=== PATIENT | female | born 1980 | race Caucasian/White ===

== ENCOUNTER 2022-04-27 13:06 | Outpatient (REF) | payer OTHER, SELFPAY | END 2022-04-27 13:07 | disposition home or self-care (01) | LOC: HO.HOSX 13:06 | PROVIDERS: Visit Provider Physician Assistant | DX: Z13.89 Encounter for screening for other disorder (principal) ==

== ENCOUNTER 2022-04-28 14:11 | Outpatient (REF) | payer OTHER, SELFPAY ==
--- NOTE | ~2022-04-28 | XR_ITS ---
EXAMINATION: XR AP STANDING VIEW BOTH KNEES. XR KNEE, BILATERAL. CLINICAL INFORMATION: Bilateral knee pain COMPARISON: Left knee radiographs 03/20/2010 TECHNIQUE: AP standing view both knees. Lateral and sunrise views of each knee. FINDINGS: There is severe patellofemoral compartment osteoarthritis of both knees with lateral subluxation of the patella and large marginal osteophytes. Large marginal osteophytes are also present in the medial and lateral compartments without significant joint space narrowing. No acute osseous abnormality. No definite joint effusion. XR/XR knee standing BI IMPRESSION: Severe patellofemoral compartment osteoarthritis of both knees with lateral subluxation of the patella suggesting chronic patellofemoral malalignment. Moderate medial/lateral compartment osteoarthritis. Degenerative changes are symmetric. No acute abnormality.
--- NOTE | ~2022-04-28 | XR_ITS ---
EXAMINATION: XR AP STANDING VIEW BOTH KNEES. XR KNEE, BILATERAL. CLINICAL INFORMATION: Bilateral knee pain COMPARISON: Left knee radiographs 03/20/2010 TECHNIQUE: AP standing view both knees. Lateral and sunrise views of each knee. FINDINGS: There is severe patellofemoral compartment osteoarthritis of both knees with lateral subluxation of the patella and large marginal osteophytes. Large marginal osteophytes are also present in the medial and lateral compartments without significant joint space narrowing. No acute osseous abnormality. No definite joint effusion. XR/XR knee RT 2V IMPRESSION: Severe patellofemoral compartment osteoarthritis of both knees with lateral subluxation of the patella suggesting chronic patellofemoral malalignment. Moderate medial/lateral compartment osteoarthritis. Degenerative changes are symmetric. No acute abnormality.
--- NOTE | ~2022-04-28 | XR_ITS ---
EXAMINATION: XR AP STANDING VIEW BOTH KNEES. XR KNEE, BILATERAL. CLINICAL INFORMATION: Bilateral knee pain COMPARISON: Left knee radiographs 03/20/2010 TECHNIQUE: AP standing view both knees. Lateral and sunrise views of each knee. FINDINGS: There is severe patellofemoral compartment osteoarthritis of both knees with lateral subluxation of the patella and large marginal osteophytes. Large marginal osteophytes are also present in the medial and lateral compartments without significant joint space narrowing. No acute osseous abnormality. No definite joint effusion. XR/XR knee LT 2V IMPRESSION: Severe patellofemoral compartment osteoarthritis of both knees with lateral subluxation of the patella suggesting chronic patellofemoral malalignment. Moderate medial/lateral compartment osteoarthritis. Degenerative changes are symmetric. No acute abnormality.
== END 2022-04-28 14:12 | disposition home or self-care (01) ==
LOC: HO.HOSX 14:11
PROVIDERS: Visit Provider Physician Assistant
DX: M17.0 Bilateral primary osteoarthritis of knee (principal); E11.9 Type 2 diabetes mellitus without complications
CPT/HCPCS: 20610; 73560; 73565; 99202; J1020

== ENCOUNTER 2022-06-04 09:48 | Outpatient (REF) | payer OTHER, SELFPAY | END 2022-06-04 09:49 | disposition home or self-care (01) | LOC: HO.HOSX 09:48 | PROVIDERS: Visit Provider Physician Assistant | DX: Z13.89 Encounter for screening for other disorder (principal) ==